=== PATIENT | female | born 1990 | race Caucasian/White ===

== ENCOUNTER 2018-07-19 07:51 | Day surgery (SDC) | payer OTHER ==
--- NOTE | 2018-07-18 19:59 | PDGENHP ---
History and Physical History and Physical: Assessment and Plan: 1. Dysmenorrhea Elier has dysmenorrhea, dyspareunia, and dyschezia which is highly suggestive of endometriosis. She has failed medical management. We reviewed all conservative and surgical options. At the end of our discussion she is interested in surgical treatment. This will be a robotic excision of endometriosis. I will perform her preoperative counseling over the phone. 2. Dyspareunia in female Subjective: Patient ID: Elier Jacobson is a 27 y.o. female who presents to [facility] for endometriosis. ASHLEY Thapa is a 27-year-old 0 woman who presents to discuss possible endometriosis. For the last 10 years she has had daily pelvic and low back pain. 1-2 days each cycle she is incapacitated by the pain unable to work or even leave the house. Her cycles are regular each month. She will bleed 4-5 days. 2 of the days are heavy when she will have to change her tampon every 2- 3 hours. She frequently passes clots. The pain often begins 1-2 weeks before her menses which feels like tightening. It then increases in intensity during the first 2 days of her cycle. She describes it as a "red hot pain ". She feels it central in her pelvis a twisting pulling sensation. She has no dyschezia. She does have bloating finding it difficult to eat. She also has nausea and has had episodes of vomiting. She has no diarrhea. She does have deep dyspareunia. The dyspareunia is worse around the time of her menses. It typically last 15-30 minutes. She has no chest pain or shortness of breath. She does have urinary frequency and wakes up 3 times at night to urinate. She occasionally has pain radiating down her right leg. She underwent a cystoscopy in 2014 which was reportedly normal. She has tried control pills CBD oil heating pad and relaxation to help her pain. The control pills did not help. Since 2010 she has been on Sprintec and Loestrin. She lives in [place]. 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 Of significance her sister in [place] has undergone 3 laparoscopies for endometriosis. PastMedicalHistory Past Medical History: Diagnosis Date Allergy to pollen Gastrointestinal disorder IBS symthoms Urinary tract infection frequent PastSurgicalHistory No past surgical history on file. CURRENT MEDICATIONS: No current outpatient medications on file. No current facility-administered medications for this visit. ALLERGIES: Patient has no known allergies. I have reviewed, verified and agree with the past medical, surgical, , family, social and ROS history as documented by the RN today. Objective: Vital Signs: Visit Vitals BP 112/62 Pulse 135 Temp 37.2 C (98.9 F) (Tympanic) Ht 1.651 m (5' 5") Wt 52.8 kg (116 lb 6.4 oz) LMP 02/27/2018 (Exact Date) SpO2 97% BMI 19.37 kg/m Physical Exam Gen: This is an alert, well developed woman in no distress. Neuro: She moves all extremities. Psych: She is appropriate, oriented, with normal affect. Neck: No thyroid enlargement, adenopathy, or tenderness. Lungs: Clear to ascultation, no wheezes or rales. Heart: Regular rate and rhythm without obvious murmurs. Abdomen: Soft, non-tender, without guarding, rebound, or masses. Extremities: No edema or cyanosis. Pelvic: Normal external genitalia. Non-gaping introitus, vagina without discharge, adequately estrogenized, no significant prolapse. Cervix without lesions or discharge. Uterus normal sized. Adnexa tender without enlargement. She has tenderness surrounding the cervix especially the posterior uterus posterior cul-de-sac and uterosacral ligaments. The uterus has slightly reduced mobility. No obvious masses are palpable. DATA: I have reviewed the pertinent medical records. PELVIC ULTRASOUND Transvaginal Pelvic Ultrasound Indication: Pelvic pain. Findings: The uterus is anterior and measures 7.5 x 3.6 x 4.9 cm. The endometrium measures 2 mm. The right ovary measures 3.2 x 2.3 cm. There is a small cystic structure in the central portion of the ovary which may represent an endometrioma. This measures 1.3 x 0.6 cm. The left ovary measures 3.1 x 2.0 cm and appears to contain a simple cyst. Impression: Possible right ovarian endometrioma. TIME/COMMUNICATION: I personally spent a total of 60 minutes. Of that 45 minutes was counseling/ coordination of patient's care. See my note above for details. Sujit Pendleton MD Board Certified Female Pelvic Medicine and Reconstructive Surgery Director of Minimally Invasive Gynecologic Surgery, [facility] Surgeon in Minimally Invasive Gynecologic Surgery [facility] Surgeon in Robotic Surgery
[~2018-07-19 07:51] MED LIST: DEXAMETHASONE 4 MG/ML VIAL ONE; GLYCOPYRROLATE 0.2 MG/1 ML VIAL ONE; KETOROLAC 30 MG/1 ML SDV ONE; LIDOCAINE 2% 100 MG/5 ML SYR ONE; NEOSTIGMINE METHYLSULFATE 5 MG/5 ML SYR ONE; ONDANSETRON 4 MG/2 ML VIAL ONE; PROPOFOL 200 MG/20 ML VIAL ONE; ROCURONIUM 50 MG/5 ML VIAL ONE; fentaNYL 100 MCG/2 ML INJ ONE
[2018-07-19] MEDS ORDERED: ceFAZolin 2 GM/DEXTROSE 100 ML IV ONE (08:04)
[2018-07-19] MEDS ORDERED: GABAPENTIN 300 MG CAP PO ONE (08:04)
[2018-07-19] MEDS ORDERED: PHENAZOPYRIDINE HCL 200 MG TAB PO ONE (08:04)
[2018-07-19] MEDS ORDERED: ACETAMINOPHEN 500 MG TAB PO ONE (08:04)
[2018-07-19] MEDS ORDERED: LR 1,000 ML IV ONE (08:08)
[2018-07-19] MEDS ORDERED: BUPIVACAINE/EPI 0.5% 30 ML SDV ONE (09:09)
--- NOTE | 2018-07-19 09:15 | PDHPUP ---
History & Physical Update H&P update statement: This history and physical update is based on an assessment of the patient which was completed after admission or registration (within 24 hours), but prior to the surgery/procedure. H&P update: H&P reviewed & patient examined, no change in patient's condition since H&P completed
[2018-07-19] MEDS ORDERED: MIDAZOLAM 2 MG/2 ML VIAL ONE (09:29)
[2018-07-19] MEDS ORDERED: MIDAZOLAM 2 MG/2 ML VIAL IVP ONE (09:30)
--- NOTE | 2018-07-19 09:30 | PDANEPAE ---
ANE History of Present Illness endometriosis, here for laparoscopic/robotic assist in ablation ANE Past Medical History - Cardiovascular History Hx Hypertension: No Hx Arrhythmias: No Hx Chest Pain: No Hx Coronary Artery / Peripheral Vascular Disease: No Hx CHF / Valvular Disease: No Hx Palpitations: No Cardiovascular History Comment: HR tends to run high, had holter monitor in 2017 , no findings - Pulmonary History Hx COPD: No Hx Asthma/Reactive Airway Disease: No Hx Recent Upper Respiratory Infection: No Hx Oxygen in Use at Home: No Hx Sleep Apnea: No Sleep Apnea Screening Result - Last Documented: Negative Pulmonary History Comment: more congested after sleeping - Neurologic History Hx Cerebrovascular Accident: No Hx Seizures: No Hx Dementia: No - Endocrine History Hx Diabetes: No - Renal History Hx Renal Disorders: Yes Renal History Comment: hx of uti's but none since 2014 - Liver History Hx Hepatic Disorders: No - Neurological & Psychiatric Hx Hx Neurological and Psychiatric Disorders: No - Cancer History Hx Cancer: No - Congenital Disorder History Hx Congenital Disorders: No - GI History Hx Gastrointestinal Disorders: Yes Gastrointestinal History Comment: IBS symptoms. hiccups when nervous or after eating sometimes - Other Health History Other Health History: eczema. hx of anemia - Chronic Pain History Chronic Pain: No - Surgical History Prior Surgeries: n/a ANE Review of Systems Review of Systems: - Exercise capacity METS (RN): 4 METS ANE Patient History - Allergies Allergies/Adverse Reactions: No Known Allergies Allergy (Verified 06/20/18 12:10) - Home Medications Home Medications: Cbd/ Thc 06/20/18 [Last Taken 07/16/18] Herbals/Supplements -Info Only 06/20/18 [Last Taken 1 Week Ago ~07/12/18] Ibuprofen 06/20/18 [Last Taken 1 Week Ago ~07/12/18] - NPO status NPO Since - Liquids (Date): 07/19/18 NPO Since - Liquids (Time): 06:00 NPO Since - Solids (Date): 07/18/18 NPO Since - Solids (Time): 23:00 - Smoking Hx Smoking Status: Never smoked - Family Anes Hx Family Hx Anesthesia Complications: none ANE Labs/Vital Signs - Vital Signs Blood Pressure: 128/83 Heart Rate: 123 Respiratory Rate: 18 O2 Sat (%): 98 Height: 165.1 cm Weight: 54.431 kg ANE Physical Exam - Airway Neck exam: FROM Mallampati Score: Class 1 Mouth exam: normal dental/mouth exam - Pulmonary Pulmonary: no respiratory distress, no rales or rhonchi - Cardiovascular Cardiovascular: regular rate and rhythym, no murmur, rub, or gallop - ASA Status ASA Status: II ANE Anesthesia Plan Anesthesia Plan: general endotracheal anesthesia Total IV Anesthesia: Yes
[2018-07-19] MEDS ORDERED: BUPIVACAINE/EPI 0.25% 30 ML SDV ONE (09:47)
[2018-07-19] MEDS ORDERED: HYDROmorphONE/DILAUDID 2 MG/ML INJ ONE (10:07)
[2018-07-19] MEDS ORDERED: PROPOFOL/EMULSION 500 MG/50 ML BOTTLE IV ONE ×2 (10:14→10:58)
[2018-07-19] MEDS ORDERED: PROMETHAZINE HCL 25 MG/ML INJ IVP PRN (10:54)
[2018-07-19] MEDS ORDERED: DIAZEPAM 5 MG/ML 1 ML SYR IVP PRN (10:54)
[2018-07-19] MEDS ORDERED: NALOXONE HCL 0.4 MG/ML INJ IVP PRN (10:54)
[2018-07-19] MEDS ORDERED: LR 500 ML IV PRN (10:54)
[2018-07-19] MEDS ORDERED: HYDROmorphONE/DILAUDID 1 MG/ML INJ IVP PRN (10:54)
[2018-07-19] MEDS ORDERED: MEPERIDINE 25 MG/0.5 ML AMP IVP PRN (10:54)
[2018-07-19] MEDS ORDERED: oxyCODONE IR 5 MG TAB PO PRN (10:54)
--- NOTE | 2018-07-19 11:41 | POSTOPPROG ---
Post Op Note Date of Operation: 07/19/18 Surgeon: Sujit Pendleton Account Services Analyst: Shannon Mendez Anesthesia: GET(General Endotracheal) Pre-op Diagnosis: Endometriosis, dysmenorrhea Post-op Diagnosis: Same Procedure: Robotic excision of endo, bilat ureterolysis, ovarian pexy Findings: Endo Inf/Abcess present in the surg proc area at time of surgery?: No EBL: Minimal Complications: None
--- NOTE | 2018-07-19 11:53 | POSTANESTH ---
Post Anesthetic Evaluation Cardiovascular Status: Normal, Stable Respiratory Status: Normal, Stable Level of Consciousness/Mental Status: Can Participate in Eval, Mildly Sleepy, Arousable Pain Control: Adequate, Prn Tx Ordered Nausea/Vomiting Control: Adequate, Prn Tx Ordered Complications Possibly Related to Anesthesia: None Noted
[2018-07-19] MEDS ORDERED: fentaNYL 100 MCG/2 ML INJ ONE (12:21)
[2018-07-19] MEDS: fentaNYL 100 MCG/2 ML INJ IVP PRN ×2 (12:25→12:41)
--- NOTE | 2018-07-19 12:25 | GOP ---
[f rep st] OPERATIVE REPORT DATE OF OPERATION: 07/19/2018 SURGEON: Sujit Pendleton MD MANAGER SECURITY AND SAFETY: Shannon Mendez CFA. ANESTHESIA: General. PREOPERATIVE DIAGNOSIS: 1. Dysmenorrhea. 2. Endometriosis. 3. Midcycle pain. 4. Dyschezia. POSTOPERATIVE DIAGNOSIS: 1. Dysmenorrhea. 2. Endometriosis. 3. Midcycle pain. 4. Dyschezia. PROCEDURE PERFORMED: 1. Robotic excision of endometriosis in anterior and posterior cul-de-sac, bilateral pelvic side wal ls. 2. Excision of sigmoid lesions. 3. Excision of rectal lesions. 4. Excision of right tubal mass. 5. Areas bilateral ureterolysis. 6. Excision of right endometrioma. 7. Bilateral ovariopexy. FINDINGS: The upper abdomen was unremarkable. There was no evidence of endometriosis on either diap hragm, liver, stomach, gallbladder, or upper abdominal bowel. She had some filmy adhesions of the hal wel to the right lateral abdominal wall. Within the pelvis she had significant lesions of endometrio sis in the anterior and posterior cul-de-sac, both pelvic sidewalls overlying both ureters. She had lesions on both ovaries. She had lesions on the sigmoid and rectum. She had a benign appearing mass on the right fallopian tube. She had an endometrioma of the right ovary. Fortunately, she had no s ignificant adhesive disease. The anterior cul-de-sac peritoneum was completely excised. The lesions on the sigmoid and rectum wer e excised. These extended into the muscularis. The entire posterior cul-de-sac peritoneum from the distal rectum up to the cervix and laterally to both uterosacral ligaments was completely excised. S he required a bilateral ureterolysis given the endometriosis overlying both ureters. The peritoneum over the pelvic brims was incised. The ureters were gently dissected free and lateralized off the ov erlying peritoneum and endometriosis from the pelvic brim down to the uterine arteries. Once this wa s accomplished the entire pelvic sidewall peritoneum was completely excised. The lesion on the right fallopian tube was excised. The endometrioma was incised, drained, and the entire cyst wall was com pletely excised from the remaining stroma. Given the patient's midcycle pain and likelihood of worse agustín pain given the exposed peritoneum bilaterally she required a bilateral ureterolysis. Each ovary was attached to the ipsilateral round ligaments near the internal inguinal ring with 3-0 Vicryl Rapi de suture. The pelvis was then irrigated with sterile saline, and hemostasis was present. One sheet of Interceed was placed over each adnexa, and the posterior cul-de-sac and 1 was placed in the anter ior cul-de-sac. Anesthesia was then reversed. The incisions were closed with 4-0 Monocryl. She was taken to PACU awake, in stable condition. SPECIMENS: 1. Pelvic peritoneum with endometriosis. 2. Sigmoid lesions. 3. Rectal lesion. 4. Right tubal mass. 1. Right ovarian endometrioma. 5. ESTIMATED BLOOD LOSS: Scant. DESCRIPTION OF PROCEDURE: The patient was taken to the operating room where she was identified. Gen eral anesthesia was administered and found to be adequate. She was placed in the lithotomy position and prepared and draped in normal sterile fashion. A Mora catheter was placed in the bladder. A Hu lka tenaculum was placed in the uterus for manipulation. An 8 mm infraumbilical incision was made with a scalpel. The Veress needle with the CO2 gas flowing was advanced into the peritoneal cavity. The abdomen was then insufflated with carbon dioxide gas. The 8 mm trocar followed by the laparoscope were then inserted. Two lateral ports were placed in the right, 1 on the left under direct visualization. COMPLICATIONS: None. DISPOSITION: Patient stable to PACU. /[id number]/MODL
[2018-07-19] MEDS ORDERED: oxyCODONE IR 5 MG TAB ONE (12:45)
[2018-07-19 14:14] VITALS: BP 107/63
== END 2018-07-19 14:37 | disposition home or self-care (01) ==
LOC: FSGY 07:51
PROVIDERS: ATTEND Obstetrics & Gynecology
DX: N80.3 Endometriosis of pelvic peritoneum (principal); N80.5 Endometriosis of intestine; N80.1 Endometriosis of ovary; N83.8 Other noninflammatory disorders of ovary, fallopian tube and broad ligament; N94.5 Secondary dysmenorrhea; N94.12 Deep dyspareunia; K59.8 Other specified functional intestinal disorders
CPT/HCPCS: 58662; 58679; C1765; J0690; J1100; J1170; J1885; J2001; J2250; J2405; J2704; J2710; J3010